=== PATIENT | female | born 1960 | race Caucasian/White ===

== ENCOUNTER 2017-01-05 07:27 | Day surgery (SDC) | payer BC ==
[2017-01-01 11:38] LABS: BASOPHILS 0.8 %; BASOPHILS ABSOLUTE 0.08 10/3/uL (0.0-0.16); EOSINOPHILS 6.3 %; EOSINOPHILS ABSOLUTE 0.62 10/3/uL (0.0-0.53); HEMOGLOBIN 13.3 g/dL (12.0-16.0); IMMATURE GRANULOCYTES 0.2 %; IMMATURE GRANULOCYTES ABSOLUTE 0.02 10/3/uL (0.0-0.11); LYMPHOCYTES ABSOLUTE 2.36 10/3/uL (0.67-4.30); MEAN CORPUS HGB CONC 32.9 g/dL (32.0-36.0); MEAN CORPUSCULAR HEMOGLOB 26.5 pg (26.0-34.0); MEAN PLATELET VOLUME 10.1 fL (9.2-13.0); MONOCYTES 6.7 %; MONOCYTES ABSOLUTE 0.66 10/3/uL (0.21-1.20); NEUTROPHILS ABSOLUTE 6.08 10/3/uL (2.02-8.40); PLATELET COUNT 438 10/3/uL (150-400); RBC DISTRIBUTION WIDTH 14.7 % (12.0-16.0); RED CELL COUNT 5.01 10/6/uL (4.0-5.6); WHITE BLOOD CELLS 9.8 10/3/uL (4.5-10.5)
[2017-01-01 11:39] LABS: HEMATOCRIT 40.4 % (36.0-48.0); MANUAL DIFF NO %; MEAN CORPUSCULAR VOLUME 80.6 fL (80-100)
[2017-01-01 11:44] LABS: PARTIAL THROMBO TIME 28.6 SEC (22.5-37.2)
[2017-01-01 11:45] LABS: PROTIME (NOT ORD) 13.5 SEC (12.0-14.5)
[2017-01-01 12:10] LABS: PFA (COL/EPI) 105 SEC (72-180)
--- NOTE | ~2017-01-05 | OP ---
Record Of Operation [facility] [address] [place]. [address] NAME: GARCÍA JENSEN : 58 STATUS : REG [facility]#: [id number] AGE: 56 ADM/REG DATE : 01/05/17 MR#: [id number] REPORT SERV DATE: 01/07/17 DICTATED BY: ОЛЕГ SARMIENTO DATE: 01/07/17 REPORT STATUS : Draft TRANSCRIBED BY: JOSE DATE: 01/07/17 DATE OF PROCEDURE: 01/05/2017 PREOPERATIVE DIAGNOSIS: Surgical absence of the breast, late effect of radiation, history of breast cancer, deformity of breast reconstruction. POSTOPERATIVE DIAGNOSIS: Surgical absence of the breast, late effect of radiation, history of breast cancer, deformity of breast reconstruction. PROCEDURE: Bilateral tissue anodic operator exchange to definitive silicone implants and fat grafting for deformity. INDICATIONS AND FINDINGS OF THE PROCEDURE: This 56-year-old female is status post a complex breast reconstruction. She has had a right lumpectomy and radiation in the past. She then had a secondary breast cancer. She was reconstructed with tissue expansion technique though her preoperative breast shape was significantly asymmetric. She is now appropriate for the above-described operative intervention with implant exchange, varying sized implants, fat grafting of varying volumes, and left inframammary crease excision of duplicated skin and fat. DETAILS OF THE PROCEDURE: The patient was brought to the operating room after being marked in the preoperative holding area. She was prepped and draped in the usual sterile fashion for the above-described procedure. Our initial attention was turned to the abdomen. Through two small stab incisions, she was infiltrated with a wetting solution and a 350 mL of fatty aspirate was removed through a revolve apparatus. The fat was subsequently washed and transferred to 10 mL syringes. Again using a preoperatively placed topographical map, approximately 220 mL of fat was transferred into the right breast soft tissue envelope and 100 mL into the left. With this completed then, the sites were re-cleansed, gloves were changed, and our attention was turned to the right breast. Inframammary crease incision was made and dissection was carried down to the level of the tissue anodic operator, which was ruptured and removed. A superior and superolateral capsulotomy was then carried out, and she was checked for hemostasis with cautery, irrigated with Hibiclens solution, and inferior drain was then placed and then a 685 MH implant was placed into this site. This was manipulated into an appropriate position over the drain and then the wound was closed with multiple layers of Vicryl and Monocryl through to an intracuticular in the skin. On the left then, an inframammary crease excision, which had been marked preoperatively was made. This was about 15 cm long and varied in its width as lenticle extending from medial to lateral. The widest point was about 8 cm. This excision was carried down to the underlying fat. Meticulous attention was taken laterally to avoid the postoperative dog ear. With this area excised and hemostasis was checked, an incision was made into the former AlloDerm and the implant pocket. The tissue anodic operator was ruptured and removed. The pocket was inspected as there were some issues throughout her expansion of persistent redness on this side. No evidence internally indicated a reason for this persistent redness. Any small areas of granulation tissue were scraped away. She was thoroughly irrigated with Hibiclens solution and inferior drain was placed. The supra- and superolateral capsulotomy were performed and then at 555 MH implant was placed into this site. This was manipulated into an appropriate Record Of Operation [address] [address] NAME: GARCÍA JENSEN : 58 STATUS : [place] [facility] [place]#: [id number] AGE: 56 ADM/REG DATE : 01/05/17 MR#: [id number] REPORT SERV DATE: 01/07/17 DICTATED BY: ОЛЕГ SARMIENTO DATE: 01/07/17 REPORT STATUS : Draft TRANSCRIBED BY: JOSE DATE: 01/07/17 position over the drain and then she was closed similarly with multiple layers of 3-0 Vicryl and multiple layers of Monocryl through to an intracuticular in the skin. Size match was noted to be good at the end of surgery, and she was cleansed with peroxide. All stab extraction and injection incisions were closed with 5-0 fast-absorbing gut, and she was dressed with a dry dressing and remanded to the recovery room in stable condition. All sponge and needle counts were correct. LUTHER/JOSE Олег Sarmiento M.D. / [id number] CC: Mal Sood Jr
[~2017-01-05 07:27] MED LIST: AT25 PO; EFFEX37.5 PO; GLUCCHONDR PO; K500 PO; PERCOCET1 TA2 PO; PRILOSEC40 MG PO; ZEGRID PO; [UNRECOGNIZED DRUG - OTHER] PO
== END 2017-01-05 23:59 | disposition home or self-care (01) ==
LOC: SDC 07:27
PROVIDERS: Surgery Surgery of the Hand
PROC: 0HPT0NZ Removal of Tissue Expander from Right Breast, Open Approach (ICD-10-PCS; 2017-01-05)
PROC: 0HRV0JZ Replacement of Bilateral Breast with Synthetic Substitute, Open Approach (ICD-10-PCS; 2017-01-05)
PROC: 0HPU0NZ Removal of Tissue Expander from Left Breast, Open Approach (ICD-10-PCS; principal; 2017-01-05 09:00)
DX: Z45.812 Encounter for adjustment or removal of left breast implant (principal); Z45.811 Encounter for adjustment or removal of right breast implant; M19.90 Unspecified osteoarthritis, unspecified site; Z90.89 Acquired absence of other organs; Z90.49 Acquired absence of other specified parts of digestive tract; K44.9 Diaphragmatic hernia without obstruction or gangrene; Z88.0 Allergy status to penicillin; Z88.2 Allergy status to sulfonamides; Z88.8 Allergy status to other drugs, medicaments and biological substances; Z88.5 Allergy status to narcotic agent; J45.909 Unspecified asthma, uncomplicated; J40 Bronchitis, not specified as acute or chronic; Z98.890 Other specified postprocedural states; Z98.51 Tubal ligation status; Z90.11 Acquired absence of right breast and nipple; Z90.12 Acquired absence of left breast and nipple; Z92.3 Personal history of irradiation; Z79.899 Other long term (current) drug therapy
CPT/HCPCS: 85025; 85576; 85610; 85730; 93005; A9270-GY; C1769; C1789; J0690; J1170; J2250; J2405; J3010

== ENCOUNTER 2017-02-02 23:50 | Emergency (ER) | payer BC ==
[2017-02-02 22:55] LABS: BASOPHILS 0.7 %; BASOPHILS ABSOLUTE 0.09 10/3/uL (0.0-0.16); EOSINOPHILS 2.9 %; EOSINOPHILS ABSOLUTE 0.39 10/3/uL (0.0-0.53); ER CBC TAT 0 Hrs 13 Mins; IMMATURE GRANULOCYTES 0.2 %; IMMATURE GRANULOCYTES ABSOLUTE 0.03 10/3/uL (0.0-0.11); LYMPHOCYTES 20.1 %; MEAN CORPUS HGB CONC 32.4 g/dL (32.0-36.0); MEAN CORPUSCULAR HEMOGLOB 26.5 pg (26.0-34.0); MEAN CORPUSCULAR VOLUME 81.7 fL (80-100); MEAN PLATELET VOLUME 9.9 fL (9.2-13.0); MONOCYTES 7.7 %; MONOCYTES ABSOLUTE 1.03 10/3/uL (0.21-1.20); NEUTROPHILS 68.4 %; NEUTROPHILS ABSOLUTE 9.17 10/3/uL (2.02-8.40); RBC DISTRIBUTION WIDTH 14.9 % (12.0-16.0); RED CELL COUNT 4.53 10/6/uL (4.0-5.6); WHITE BLOOD CELLS 13.4 10/3/uL (4.5-10.5)
[2017-02-02 22:56] LABS: MANUAL DIFF NO %; PLATELET COUNT 574 10/3/uL (150-400)
[2017-02-02 23:05] LABS: INFLUENZA A SCREEN NEGATIVE (NEGATIVE); INFLUENZA B SCREEN NEGATIVE (NEGATIVE)
[2017-02-02 23:14] LABS: ALBUMIN 3.7 G/DL (3.5-5.0); ALKALINE PHOSPHATASE 105 U/L (45-117); CALCIUM, SERUM 8.4 MG/DL (8.5-10.4); CHLORIDE, SERUM 102 MMOL/L (96-112); CO2 (CARBON DIOXIDE) 27 MMOL/L (24-34); CREATININE 0.86 MG/DL (0.55-1.02); GFR AFRICAN AMERICAN 87 ML/MIN (>=60); GFR NON AFRICAN AMERICAN 75 ML/MIN (>=60); GLUCOSE, SERUM 117 MG/DL (60-99); POTASSIUM, SERUM 3.8 MMOL/L (3.5-5.3); SGOT(AST) 12 U/L (5-40); SGPT(ALT) 17 U/L (5-65); SODIUM, SERUM 140 MMOL/L (135-148); TOTAL BILIRUBIN 0.6 MG/DL (0-1.2); TOTAL PROTEIN 7.5 G/DL (6.0-8.5)
[2017-02-02 23:17] LABS: BUN (BLOOD UREA NITROGEN) 10 MG/DL (6-23); GLOBULIN 3.8 G/DL (2.5-4.1)
[2017-02-03 08:49] LABS: WBC (NOT ORDERED) (RFLEX) 0 (0-5)
[2017-02-03 08:59] LABS: ASCORBIC ACID (UR NOT ORDER) NEG (NEG); BILIRUBIN, URINE NEGATIVE (NEG); ER URINALYSIS TAT 0 Hrs 11 Mins; KETONE, URINE NEGATIVE (NEG); LEUKOCYTE ESTERASE(NOT OR TRACE (NEG); NITRITE (URINE) NEG (NEG)
== END 2017-02-03 08:25 | disposition home or self-care (01) ==
LOC: ER 23:50
PROVIDERS: Emergency Medicine
DX: R05 Cough (principal); K21.9 Gastro-esophageal reflux disease without esophagitis; Z87.891 Personal history of nicotine dependence; Z88.0 Allergy status to penicillin; Z88.2 Allergy status to sulfonamides; Z88.5 Allergy status to narcotic agent; Z79.899 Other long term (current) drug therapy
CPT/HCPCS: 71020; 71275; 80053; 81001; 85025; 85379; 87040; 87804; 94640; 99284; A9270-GY; Q9967